=== PATIENT | male | born 1935 | race Caucasian/White ===

== ENCOUNTER 2021-05-09 09:10 | Emergency (ER) | payer OTHER ==
[2021-05-09 09:30] VITALS: BP 146/76; PULSE 75; TEMP 98; BMI 24.2
[2021-05-09 10:28] LABS: ALBUMIN 2.9 g/dl (3.4-5.0); BILIRUBIN,TOTAL 0.5 mg/dl (0.2-1); CALCIUM 8.7 mg/dl (8.5-10); CREATININE 5.4 mg/dl (0.55-1.3); TOT PROT 6.7 g/dl (6.4-8.2)
== END 2021-05-09 11:46 | disposition home or self-care (01) ==
LOC: FER 09:10
DX: N17.9 Acute kidney failure, unspecified (principal)
CPT/HCPCS: 36415; 80053; 93005; 99283-25

== ENCOUNTER 2021-06-02 09:14 | Day surgery (SDC) | payer OTHER ==
[2021-06-02 18:49] VITALS: BP 103/62; PULSE 66; TEMP 98.1
== END 2021-06-02 20:38 | disposition home or self-care (01) ==
LOC: FBLOOD 09:14 → FM/S 09:27 → FBLOOD 20:38
PROVIDERS: ATTEND Internal Medicine
PROC: 30233N1 Transfusion of Nonautologous Red Blood Cells into Peripheral Vein, Percutaneous Approach (ICD-10-PCS; principal; 2021-06-02)
DX: D64.9 Anemia, unspecified (principal)
CPT/HCPCS: 36430; 86850; 86900; 86901; 86922; P9058